=== PATIENT | female | born 1955 | race Caucasian/White ===

== ENCOUNTER 2018-12-13 07:44 | Inpatient (IN) ==
[2018-12-13] MEDS ORDERED: Famotidine 20 MG/2 ML VIAL IVP ONE (08:37)
[2018-12-13] MEDS ORDERED: Acetaminophen IV 1,000 MG/100 ML INFUS..BTL IVPB ONE (08:38)
[2018-12-13] MEDS ORDERED: traMADol 50 MG TABLET PO ONE (08:38)
[2018-12-13] MEDS ORDERED: Ringers Solution, Lactated 1,000 ML IVC SCH (08:45)
[2018-12-13] MEDS ORDERED: Albuterol 2.5 MG/3 ML NEBULIZER IH PRN (08:47)
[2018-12-13] MEDS ORDERED: CeFAZolin Syr 2,000MG/20 ML 2,000 MG/20 ML SYRINGE IVPB ONE (08:47)
[2018-12-13] MEDS ORDERED: NiCARdipine 2.5 MG/10 ML Syringe IVPB ONE (09:03)
[2018-12-13] MEDS ORDERED: *HR* Rocuronium Bromide 50 MG/5 ML VIAL ONE (09:05)
[2018-12-13] MEDS ORDERED: *HR* Succinylcholine 200 MG/10 ML VIAL IVP ONE (09:05)
[2018-12-13] MEDS ORDERED: Dexamethasone 4 MG/ML VIAL ONE (09:05)
[2018-12-13] MEDS ORDERED: *HR* Heparin 5,000 UNIT/ML VIAL ONE ×2 (09:05→11:48)
[2018-12-13] MEDS ORDERED: Lidocaine -MPF 2% 2 ML VIAL ONE ×3 (09:05→12:20)
[2018-12-13] MEDS ORDERED: Ondansetron 4 MG/2 ML VIAL ONE (09:05)
[2018-12-13] MEDS ORDERED: *HR* Midazolam HCl 2 MG/2 ML VIAL ONE (09:06)
[2018-12-13] MEDS ORDERED: Lidocaine -MPF 4% 5 ML AMPUL ONE (09:06)
[2018-12-13] MEDS ORDERED: *HR* Propofol 200 MG/20 ML VIAL IVP ONE (09:06)
[2018-12-13] MEDS ORDERED: *HR* Remifentanil 2 MG VIAL IVP ONE (09:06)
[2018-12-13] MEDS ORDERED: *HR* FentaNYL (PF) 100 MCG/2 ML VIAL ONE (09:07)
[2018-12-13] MEDS ORDERED: *HR* Labetalol 20 MG/4 ML SYRINGE IVP ONE (09:16)
[2018-12-13] MEDS ORDERED: *HR* Phenylephrine 10 MG/ML VIAL ONE (09:17)
[2018-12-13] MEDS ORDERED: Heparin 1,000 UNITS/500 mL 500 ML ONE ×3 (09:18→11:46)
[2018-12-13] MEDS ORDERED: Lidocaine 1% 20 ML MDV ONE (09:18)
[2018-12-13] MEDS ORDERED: ceFAZolin 1,000 MG, Sodium Chloride IRRigation 1,000 ML IR ONE (09:25)
[2018-12-13] MEDS ORDERED: Lidocaine -MPF 1% 2 ML AMPUL ONE (09:34)
[2018-12-13] MEDS ORDERED: *HR* HYDROmorphone (PF) 1 MG/ML SYRINGE IVP PRN (10:43)
[2018-12-13] MEDS ORDERED: *HR* Labetalol 20 MG/4 ML SYRINGE IVP PRN ×2 (10:43→14:42)
[2018-12-13] MEDS ORDERED: Ondansetron 4 MG/2 ML VIAL IVP ONE (10:43)
[2018-12-13] MEDS ORDERED: *HR* Promethazine 25 MG/ML VIAL IVP PRN (10:43)
[2018-12-13] MEDS ORDERED: Neostigmine Methylsulfate 3 MG/3 ML SYRINGE ONE (12:25)
[2018-12-13] MEDS ORDERED: Ondansetron 4 MG/2 ML VIAL IVP PRN (14:42)
[2018-12-13] MEDS ORDERED: Naloxone 0.4 MG/ML INJ IVP PRN (14:42)
[2018-12-13] MEDS ORDERED: Acetaminophen 325 MG TABLET PO PRN (14:42)
[2018-12-13] MEDS: *HR* HYDROcodone/Acet 5/325 mg TABLET PO PRN ×2 (15:30→21:30)
[2018-12-13] MEDS: Ketorolac 15 MG/ML VIAL IVP PRN ×2 (17:27→23:45)
[2018-12-13] MEDS ORDERED: Aspirin Enteric Coated 81 MG Tablet PO SCH (18:00)
[2018-12-13] MEDS ORDERED: rOPINIRole 1 MG TABLET PO SCH (21:00)
[2018-12-13] MEDS ORDERED: *HR* LORazepam 1 MG TABLET PO SCH (21:00)
[2018-12-14 01:14] LABS: Basophils % 0.4 %; Eosinophils % 0.1 %; Hematocrit 32.8 % (35.3-44.9); Hemoglobin 10.9 g/dL (11.5-15.4); Immature Granulocytes % 0.2 % (0-4); Lymphocytes # 1.4 K/mcL (0.6-4.6); Lymphocytes % 16.6 %; Mean Corpuscular HGB Conc 33.2 g/dL (31.6-35.5); Mean Corpuscular Hemoglobin 31.3 pg (28.0-33.3); Mean Corpuscular Volume 94.3 fL (83.0-100.0); Monocytes # 0.6 K/mcL (0.0-1.3); Monocytes % 7.4 %; Neutrophils # 6.4 K/mcL (1.6-8.9); Platelet Count 193 K/mcL (140-400); Red Blood Count 3.48 M/mcL (3.82-4.97); Segmented Neutrophils % 75.3 %; White Blood Count 8.6 K/mcL (4.3-11.1)
[2018-12-14 01:35] LABS: BUN/Creatinine Ratio 28 (6-26); Blood Urea Nitrogen 18 mg/dL (8-23); Calcium 8.9 mg/dL (8.6-10.3); Carbon Dioxide 22 mEq/L (23-29); Chloride 105 mEq/L (98-107); Glucose 119 mg/dL (70-105); Osmolality,Calculated 287 (280-300); Sodium 137 mEq/L (136-145); eGFR For African Americans > 60 (> 60); eGFR For Non-African Americans > 60 (> 60)
[2018-12-14] MEDS: *HR* HYDROcodone/Acet 5/325 mg TABLET PO PRN (05:01)
[2018-12-14] MEDS ORDERED: Nicotine 14 MG PATCH.TD24 TD SCH (09:00)
[2018-12-14] MEDS ORDERED: *HR* LORazepam 1 MG TABLET PO SCH (09:00)
[2018-12-14] MEDS ORDERED: Venlafaxine XR (24 HR) 150 MG CAP.ER.24H PO SCH (09:00)
[2018-12-14 11:17] VITALS: BP 138/74
== END 2018-12-14 13:46 | disposition home or self-care (01) | DRG 39 ==
LOC: SAMDAY 07:44 → 2NNU 14:23
PROVIDERS: ADMIT Surgery Vascular Surgery; ATTEND Surgery Vascular Surgery